=== PATIENT | female | born 1985 | race Caucasian/White ===

== ENCOUNTER 2017-01-06 14:55 | Emergency (ER) | payer MEDICARE, BC ==
[~2017-01-06] VITALS: Ht 170.2 cm; Wt 90.5 kg
[2017-01-06 15:19] VITALS: Ht 170.2 cm; Wt 90.5 kg
[2017-01-06] MEDS ORDERED: CEFTRIAXONE 250 MG INJ IM STA (15:49)
[2017-01-06] MEDS ORDERED: AZITHROMYCIN 250 MG TAB PO STA (15:49)
[2017-01-06] MEDS ORDERED: PENICILLIN G BENZ 2.4 MIL UNIT SYG IM STA (15:49)
[2017-01-06] MEDS ORDERED: LIDOCAINE 2% (MDV) 20 ML INJ INJ ONE (16:00)
[2017-01-06] MEDS ORDERED: IBUPROFEN 800 MG TAB PO STA (16:05)
[2017-01-06] MEDS ORDERED: ACETAMINOPHEN 325 MG TAB PO STA (16:06)
[2017-01-06] MEDS ORDERED: IBUP-1542 PO (16:13)
--- NOTE | 2017-01-06 16:34 | ERD ---
ER Documentation Chief Complaint Date/Time DATE: 01/06/17 TIME: 16:29 Chief Complaint sore throat x 1 week HPI 31-year-old female presents to the emergency department complaining of a worsening sore throat for the past week status post giving oral sex to another man. Patient states that she started up having a fever but fever subsided. Patient states the pain is 10 out of 10, she states there is no pain with swallowing. She denies any significant cough. Denies any ear pain. ROS All systems reviewed and are negative except as per history of present illness. Medications Home Meds Active Scripts Ibuprofen* (Motrin*) 600 Mg Tab, 600 MG PO Q6H Y for PAIN AND OR ELEVATED TEMP, #30 TAB Prov:NICOLAS SILVA PA-C 01/06/17 Allergies Allergies: Coded Allergies: No Known Drug Allergies (Verified Allergy, Mild, 05/09/16) PMhx/Soc History of Surgery: Yes (csecxtion, face sx, foot sx) Anesthesia Reaction: No Hx Neurological Disorder: No Hx Respiratory Disorders: No Hx Cardiac Disorders: No Hx Psychiatric Problems: Yes (depression, bipolr tipe 1.) Hx Miscellaneous Medical Probl: No Hx Alcohol Use: Yes (2 glases a daY) Hx Substance Use: Yes (meth) Hx Tobacco Use: Yes Smoking Status: Former smoker Physical Exam Vitals Vital Signs Date Time Temp Pulse Resp B/P Pulse Ox O2 Delivery O2 Flow Rate FiO2 01/06/17 15:19 99.4 126 20 127/77 97 Physical Exam GENERAL: well-developed/well-nourished, in no apparent distress, non-toxic appearing HEAD: NC/AT, no swelling noted in frontal or maxillary areas EARS: bilateral tympanic membrane is intact without erythema or effusion NARES: nares patent, rhinorrhea and congested THROAT: Erythematous with exudate EYES: Conjunctiva normal NECK: Supple, no lymphadenopathy PULM: CTA bilaterally, no rales, rhonchi, or wheezing heard CV: Normal S1S2, RRR, good capillary refill GI: Soft, non-distended, normal bowel sounds, non-tender BACK: No midline tenderness, no masses EXT No clubbing, cyanosis, or edema NEURO: Alert and Orientated SKIN: Intact, normal turgor PSYCH: Normal mood and mentation Results 24 hrs Current Medications Medications (Trade) Dose Ordered Sig/Wolfgang Route PRN Reason Start Time Stop Time Status Last Admin Dose Admin Ceftriaxone Sodium (Rocephin) 250 mg ONCE STAT IM 01/06/17 15:49 01/06/17 15:50 DC 01/06/17 16:14 Lidocaine (Xylocaine 2% (Mdv) 20 ml) 20 ml ONCE ONCE INJ 01/06/17 16:00 01/06/17 16:01 DC 01/06/17 16:23 Azithromycin (Zithromax) 1,000 mg ONCE STAT PO 01/06/17 15:49 01/06/17 15:50 DC 01/06/17 16:14 Penicillin G Benzathine (Bicillin La) 2,400,000 units ONCE STAT IM 01/06/17 15:49 01/06/17 15:50 DC 01/06/17 16:14 Ibuprofen (Motrin) 800 mg ONCE STAT PO 01/06/17 16:05 01/06/17 16:06 DC 01/06/17 16:14 Acetaminophen (Tylenol Tab) 650 mg ONCE STAT PO 01/06/17 16:06 01/06/17 16:07 DC 01/06/17 16:15 Procedures/MDM This is a 31-year-old female presenting to the emergency department pending of a sore throat for the past week which is likely due to a strep versus gonorrhea/ chlamydia versus viral pharyngitis. Patient will be empirically treated for strep pharyngitis and gonorrhea chlamydia pharyngitis. There was no evidence of peritonsillar abscess, retropharyngeal abscess or Kevin angina. In the ED patient was given penicillin IM, ceftriaxone IM and she is given azithromycin 100 mg tablet. Prescription for ibuprofen was provided. Patient is stable to be discharged home with precautions to return emergency department for any worsening symptoms. She understands and agrees with Departure Diagnosis: Primary Impression: Acute tonsillitis Condition: Stable Patient Instructions: When Your Child Has Pharyngitis or Tonsillitis Additional Instructions: FOLLOW UP WITH YOUR PRIMARY CARE PHYSICIAN TOMORROW.Return to this facility if you are not improving as expected. Take all medicines as directed. Return to this facility if you are not improving as expected. NICOLAS SILVA PA-C Jan 06, 2017 16:34
== END 2017-01-06 16:50 | disposition home or self-care (01) ==
LOC: FTE 14:55
DX: J03.90 Acute tonsillitis, unspecified (principal); Z87.891 Personal history of nicotine dependence
CPT/HCPCS: 96372; 99284; J0561; J0696

== ENCOUNTER 2018-08-03 18:08 | Emergency (ER) | payer BC, MEDICARE ==
[~2018-08-03] VITALS: Ht 175.3 cm; Wt 94.0 kg
[~2018-08-03 18:08] MED LIST: IBUP-1542 PO
[2018-08-03 19:15] VITALS: Ht 175.3 cm; Wt 94.0 kg
--- NOTE | 2018-08-03 21:47 | ERD ---
ER Documentation Chief Complaint Chief Complaint PELVIC PAIN WITH DYSURIA X 3-4 WEEKS, STRONG URINE ODOR HPI 33-year-old female with a history of tubo-ovarian abscess presents today with lower abdominal pain, dysuria, back pain, frequency. Denies any fevers or hematuria. Denies any vaginal discharge. States her last menstrual period was 1 week ago. Denies past medical history. Denies allergies. Denies medications. Denies surgeries. Denies alcohol, tobacco, drug use. Up to date on vaccines. ROS All systems reviewed and are negative except as per history of present illness. Medications Home Meds Active Scripts Ibuprofen* (Motrin*) 600 Mg Tab, 600 MG PO Q6H PRN for PAIN AND OR ELEVATED TEMP, #30 TAB Prov:MADI SEGURA 08/03/18 Cephalexin* (Keflex*) 500 Mg Capsule, 500 MG PO TID for UTI for 7 Days, CAP Prov:MADI SEGURA 08/03/18 Ibuprofen* (Motrin*) 600 Mg Tab, 600 MG PO Q6H PRN for PAIN AND OR ELEVATED TEMP, #30 TAB Prov:NICOLAS SILVA PA-C 01/06/17 Allergies Allergies: Coded Allergies: No Known Drug Allergies (Verified Allergy, Mild, 05/09/16) PMhx/Soc Medical and Surgical Hx: pt denies Medical Hx, pt denies Surgical Hx History of Surgery: Yes (csecxtion, face sx, foot sx) Anesthesia Reaction: No Hx Neurological Disorder: No Hx Respiratory Disorders: No Hx Cardiac Disorders: No Hx Psychiatric Problems: Yes (depression, bipolr tipe 1.) Hx Miscellaneous Medical Probl: No Hx Alcohol Use: Yes (2 glases a daY) Hx Substance Use: Yes (meth) Hx Tobacco Use: Yes Smoking Status: Current some day smoker FmHx Family History: No diabetes, No coronary disease, No other Physical Exam Vitals Vital Signs Date Temp Pulse Resp B/P (MAP) Pulse Ox O2 O2 Flow FiO2 Time Delivery Rate 08/04/18 98.8 79 16 144/82 99 Room Air 00:00 (102) 08/03/18 98.8 95 16 166/67 99 19:15 (100) Physical Exam Const: No acute distress Head: Atraumatic Eyes: Normal Conjunctiva ENT: Normal External Ears, Nose and Mouth. Neck: Full range of motion. No meningismus. Resp: Clear to auscultation bilaterally Cardio: Regular rate and rhythm, no murmurs Abd: Negative McBurney's tenderness. Negative Winchester sign. Soft, non tender, non distended. Normal bowel sounds Skin: No petechiae or rashes Back: No midline or flank tenderness Ext: No cyanosis, or edema Neur: Awake and alert Psych: Normal Mood and Affect Result Diagram: 08/03/18213208/03/182132 Results 24 hrs Laboratory Tests Test 08/03/18 21:29 08/03/18 21:33 POC Beta HCG, Qualitative NEGATIVE White Blood Count 12.1 10^3/ul Red Blood Count 4.20 10^6/ul Hemoglobin 11.5 g/dl Hematocrit 33.4 % Mean Corpuscular Volume 79.5 fl Mean Corpuscular Hemoglobin 27.4 pg Mean Corpuscular Hemoglobin Concent 34.4 g/dl Red Cell Distribution Width 14.6 % Platelet Count 306 10^3/UL Mean Platelet Volume 11.3 fl Immature Granulocytes % 0.500 % Neutrophils % 67.3 % Lymphocytes % 20.2 % Monocytes % 10.5 % Eosinophils % 1.2 % Basophils % 0.3 % Nucleated Red Blood Cells % 0.0 /100WBC Immature Granulocytes # 0.060 10^3/ul Neutrophils # 8.1 10^3/ul Lymphocytes # 2.4 10^3/ul Monocytes # 1.3 10^3/ul Eosinophils # 0.1 10^3/ul Basophils # 0.0 10^3/ul Nucleated Red Blood Cells # 0.0 10^3/ul Urine Color YELLOW Urine Clarity SLIGHTLY CLOUDY Urine pH 6.0 Urine Specific [place] 1.024 Urine Ketones NEGATIVE mg/dL Urine Nitrite NEGATIVE mg/dL Urine Bilirubin NEGATIVE mg/dL Urine Urobilinogen 2+ mg/dL Urine Leukocyte Esterase 1+ Mary Alice/ul Urine Microscopic RBC 3 /HPF Urine Microscopic WBC 28 /HPF Urine Squamous Epithelial Cells MODERATE /HPF Urine Bacteria MODERATE /HPF Urine Mucus FEW /HPF Urine Hemoglobin NEGATIVE mg/dL Urine Glucose NEGATIVE mg/dL Urine Total Protein 1+ mg/dl Sodium Level 142 mmol/L Potassium Level 3.8 mmol/L Chloride Level 107 mmol/L Carbon Dioxide Level 26 mmol/L Anion Gap 9 Blood Urea Nitrogen 13 mg/dl Creatinine 0.69 mg/dl Est Glomerular Filtrat Rate mL/min > 60 mL/min Glucose Level 101 mg/dl Calcium Level 9.8 mg/dl Total Bilirubin 0.2 mg/dl Direct Bilirubin 0.00 mg/dl Indirect Bilirubin 0.2 mg/dl Aspartate Amino Transf (AST/SGOT) 20 IU/L Alanine Aminotransferase (ALT/SGPT) 17 IU/L Alkaline Phosphatase 69 IU/L Total Protein 7.5 g/dl Albumin 4.4 g/dl Globulin 3.10 g/dl Albumin/Globulin Ratio 1.41 Current Medications Medications Dose Sig/Wolfgang Start Time Status Last (Trade) Ordered Route PRN Stop Time Admin Dose Reason Admin Ketorolac 30 mg ONCE STAT 08/03/18 DC 08/03/18 Tromethamine IV 21:59 22:04 (Toradol) 08/03/18 22:00 Procedures/MDM DIAGNOSTIC IMAGING REPORT Patient: FAHEEM VICENTE : 1985 Age: 33 Sex: F MR #: [id number] DOS: 08/03/182131 Ordering MD: MADI SEGURA Location: E Room/Bed: PROCEDURE: CT abdomen and pelvis without contrast. CLINICAL INDICATION: Tubal ovarian abscess. TECHNIQUE: CT scan of the abdomen and pelvis without oral contrast was performed and is reconstructed at 2.5 mm contiguous axial intervals from the dome of the diaphragm to the inferior pubic rami.. The patient was scanned without intravenous contrast. Sagittal and coronal reformatted images were obtained from the axial source images. The calculated radiation dose measures 1161 mGy centimeters. The CTDI measures 20.6 mGy. Individualized dose optimization technique was used for the performance of this exam. This included 1. Automated exposure control. 2. Adjustment of the mA and / or kV according to the patient's size. 3. Use of iterative reconstructed technique. COMPARISON: CT abdomen pelvis May 09, 2016 FINDINGS: The lung bases are clear of any infiltrate or nodule. No effusion is seen. The liver is of normal size, contour and attenuation with no mass or ductal dilatation. No gallstones are visualized. No splenic, adrenal or pancreatic abnormalities present. Kidneys enhance symmetrically and are of normal size and contour. No hydronephrosis or masses seen. There is a 3 mm nonobstructing stone in the lower pole of the right kidney. Ureters are of normal course and caliber with no stone. No bladder mass or stone is present. Uterus appears normal. No adnexal masses seen. No intraperitoneal or retroperitoneal abscess is identified. There is no aneurysm. No adenopathy is present. No bowel mass or obstruction is present. The appendix is normal. No phlegmon, ascites or pneumoperitoneum is visualized. The osseous structures are intact. IMPRESSION: No evidence of obstructive uropathy, diverticulitis or appendicitis. 3 mm nonobstructing stone lower pole right kidney. No intraperitoneal or retroperitoneal abscess. .Victoriano To MD, MD Date Time Electronically viewed and signed by .Victoriano To MD, on 08/03/2018 22:59 .A/ CC: MOLLYTYLERMADI MATTHEWS [id number] 33-year-old female with a history of tubo-ovarian abscess presents today with lower abdominal pain, dysuria, back pain, frequency. Denies any fevers or hematuria. Denies any vaginal discharge. States her last menstrual period was 1 week ago. Given patient's history of tubo-ovarian abscess for which she stated she never took the antibiotics that she was prescribed, I felt that it was important to get a CT to rule out any emergent conditions. CT was negative. However UA did show a UTI for which she is treated with Keflex. Low suspicion for tubo ovarian abscess, ovarian torsion, appendicitis, cholecystitis, ectopic , or other emergent condition. Patient discharged with strict ER precautions. Patient advised to follow up with PMD. All questions answered at discharge. Departure Diagnosis: Primary Impression: UTI (urinary tract infection) Urinary tract infection type: site unspecified Hematuria presence: without hematuria Qualified Codes: N39.0 - Urinary tract infection, site not specified Condition: Stable COLTONMADI Aug 03, 2018 21:47
[2018-08-03] MEDS ORDERED: KETOROLAC 30 MG INJ IV STA (21:59)
[2018-08-03] MEDS ORDERED: CEPH-443 PO (23:46)
[2018-08-03] MEDS ORDERED: IBUP-1542 PO (23:46)
[2018-08-04] VITALS: BP 144/82; PULSE 79; RESP 16
== END 2018-08-04 | disposition home or self-care (01) ==
LOC: FTE 18:08
DX: N39.0 Urinary tract infection, site not specified (principal); F17.210 Nicotine dependence, cigarettes, uncomplicated
CPT/HCPCS: 36415; 74177; 80053; 81001; 81025; 85025; 96374; 99285; J1885